=== PATIENT | female | born 1945 | race Caucasian/White ===

== ENCOUNTER 2017-12-30 08:15 | Day surgery (SDC) | payer BC ==
[2017-12-23 16:02] VITALS: BMI 28.5
[2017-12-30] MEDS ORDERED: LIDOCAINE HCL/PF 2% SDV 5ML VIAL ONE (09:25)
[2017-12-30] MEDS ORDERED: PROPOFOL 20 ML ONE ×2 (09:25)
[2017-12-30 10:07] VITALS: TEMP 98.2
[2017-12-30 10:33] VITALS: BP 122/66; PULSE 84
--- NOTE | 2018-01-01 10:09 | PATH ---
Surgical Pathology Report Patient Name: OSIEL UREÑA [facility]. Rec. #: [id number] /Age/Gender: 1945 (Age: 72) / F Account: [id number] Location: [id number] Taken: 12/30/2017 Received: 12/30/2017 Reported: 01/01/2018 Physicians: Lorenzo Crabtree M.D. Specimen(s) Received RECTOSIGMOID POLYP Clinical History Screening Postoperative diagnosis: Colon polyps Final Diagnosis RECTOSIGMOID COLON, POLYP, POLYPECTOMY: HYPERPLASTIC POLYP. Electronically Signed Daylin Shepherd M.D. Gross Description Received in formalin, labeled "polyp rectosigmoid" are 3 matthew, irregular portions of soft tissue ranging from 0.1-0.3 cm. in greatest dimension. The specimens are submitted in toto in one cassette. 12/31/201712/31/2017
== END 2017-12-30 10:34 | disposition home or self-care (01) ==
LOC: FASU-ENDO 08:15
PROVIDERS: ATTEND Internal Medicine Gastroenterology
PROC: 0DBN8ZX Excision of Sigmoid Colon, Via Natural or Artificial Opening Endoscopic, Diagnostic (ICD-10-PCS; principal; 2017-12-30 09:15)
DX: Z12.11 Encounter for screening for malignant neoplasm of colon (principal); K63.5 Polyp of colon
CPT/HCPCS: 88305-TC